=== PATIENT | female | born 1940 | race Caucasian/White ===

== ENCOUNTER → 2020-08-30 | Outpatient (CLI) | payer MEDICARE ==
[~2020-08-30] MED LIST: ALBU1.25 NEB; ALBU18HF INH; AMIO200T42 PO; ASPI81TA45 PO; BUSP5TAB2 PO; DILT120C48 PO; DILT120C83 PO; DOCU-131 PO; DOCU100C33 PO; FLUT1AER IH; FURO-93 PO; FURO40TA6 PO; METO25TA35 PO; POLY17PO5 PO; POTA10TA11 PO; POTA20TA14 PO; SERT25TA PO; SIMV20TA19 PO; TIOT18CA INH; TRAM50TA2 PO; WARF-36 PO-COUM; WARF1TAB2 PO
== END | disposition home or self-care (01) ==
LOC: CFH 10:02
PROVIDERS: ATTEND Internal Medicine Cardiovascular Disease
DX: I08.8 Other rheumatic multiple valve diseases (principal); I10 Essential (primary) hypertension; E78.5 Hyperlipidemia, unspecified; Z95.1 Presence of aortocoronary bypass graft; Z87.891 Personal history of nicotine dependence
CPT/HCPCS: 93306